=== PATIENT | male | born 1955 | race Hispanic/Latino ===

== ENCOUNTER 2021-05-31 10:03 | Outpatient (CLI) | payer BC, MEDICARE ==
[2021-05-31 10:47] LABS: Blood Urea Nitrogen 16 mg/dL (9-20)
== END 2021-05-31 10:04 | disposition home or self-care (01) ==
LOC: MRI 10:03
PROVIDERS: ATTEND Otolaryngology
DX: H90.3 Sensorineural hearing loss, bilateral (principal)
CPT/HCPCS: 36415; 82565; 84520